=== PATIENT | male | born 1955 | race Caucasian/White ===

== ENCOUNTER → 2016-07-27 | Outpatient (CLI) | payer OTHER | END | disposition home or self-care (01) | LOC: PCVCCLINIC 10:26 | PROVIDERS: ATTEND Internal Medicine | DX: E78.00 Pure hypercholesterolemia, unspecified (principal); G45.9 Transient cerebral ischemic attack, unspecified | CPT/HCPCS: 80061 ==

== ENCOUNTER → 2018-05-28 | Outpatient (CLI) | payer OTHER | END | disposition home or self-care (01) | LOC: PCVCCLINIC 11:50 | PROVIDERS: ATTEND Internal Medicine | DX: I10 Essential (primary) hypertension (principal); E78.5 Hyperlipidemia, unspecified; I63.9 Cerebral infarction, unspecified; Z79.899 Other long term (current) drug therapy | CPT/HCPCS: 93005; G0463 ==

== ENCOUNTER → 2019-01-15 | Outpatient (CLI) | payer OTHER ==
--- NOTE | 2019-01-16 11:55 | PCVCIMAG ---
APPROVED REPORT Study performed: 01/15/2019 10:43:27 EXAM: Comprehensive 2D, Doppler, and color-flow Echocardiogram Patient Location: Echo lab Room #: 2Status: routine BSA: 1.92 HR: 68 bpmBP: 136/64 mmHg Rhythm: NSR Other Information Study Quality: Good Risk Factors: Cardiac Risk Factors: HTN, Dyslipidemia Indications CVA/TIA Hypertension/HDD 2D Dimensions IVSd: 7.35 (7-11mm)LVOT Diam: 23.03 (18-24mm) LVDd: 51.61 mm PWd: 6.81 (7-11mm) LVDs: 24.25 (25-40mm) Left Atrium: 33.47 (27-40mm) LV Single Plane 4CH: 64.39 % LV Single Plane 2CH: 66.75 % Biplane EF: 65.4 % Volumes Left Atrial Volume (Systole) Biplane LA Volume: 35.00 mLLA ESV Index: 18.00 mL/m2 Aortic Valve AoV Peak Gene.: 2.86 m/s AO Peak Gr.: 32.74 mmHgLVOT Max P.98 mmHg AO Mean Gr.: 18.84 mmHgLVOT Mean P.87 mmHg AO V2 Mean: 2.08 m/sLVOT Max V: 1.21 m/s AO V2 VTI: 65.60 cmLVOT Mean V: 0.80 m/s LULÚ (VTI): 1.76 nm6XQOR V1 VTI: 27.79 cm LULÚ Vmax: 1.76 cm2 AI Vmax: 4.21 m/sSV (LVOT): 115.74 mL AI [place]: 2.17 m/s2 AI PHT: 562.08 ms Mitral Valve E/A Ratio: 0.9 MV Decel. Time: 213.67 ms MV E Max Gene.: 0.82 m/s MV A Gene.: 0.88 m/s IVRT: 103.81 ms TDI E/Lateral E': 9.11E/Medial E': 10.25 Medial E' Gene.: 0.08 m/s Lateral E' Gene.: 0.09 m/s Pulmonary Valve PV Peak Gene.: 1.38 m/sPV Peak Gr.: 7.67 mmHg Pulmonary Vein P Vein S: 0.52 m/sP Vein A: 0.31 m/s P Vein D: 0.36 m/sP Vein A Dur.: 107.3 msec P Vein S/D Ratio: 1.44 Tricuspid Valve TR Peak Gene.: 2.59 m/s TR Peak Gr.: 26.86 mmHg TV Vmax: 0.83 m/sPA Pressure: 34.00 mmHg Left Ventricle The left ventricle is normal size. There is normal LV segmental wall motion. There is normal left ventricular wall thickness. Left ventricular systolic function is normal. The left ventricular ejection fraction is within the normal range. LVEF is 65%. The left ventricular diastolic function is normal. Right Ventricle The right ventricle is normal size. The right ventricular systolic function is normal. Atria The left atrium size is normal. The right atrium size is normal. Aortic Valve Aortic valve is possibly bicuspid. Mild aortic valve sclerosis. Mild to moderate aortic regurgitation. Mild aortic stenosis. Highest mean aortic valve gradient is 19_mmHg. Peak aortic valve gradient is 33_mmHg. Calculated LULÚ by the continuity equation is 1.8 cm2. Mitral Valve The mitral valve is normal in structure. There is no mitral valve regurgitation noted. No evidence of mitral valve stenosis. Tricuspid Valve The tricuspid valve is normal in structure. Trace to mild tricuspid regurgitation with a PA pressureof 34 mmHg. Mild pulmonary hypertension. Pulmonic Valve The pulmonary valve is normal in structure. There is no pulmonic valvular regurgitation. Great Vessels The aortic root is normal in size. The ascending aorta is normal in size. IVC is normal in size and collapses >50% with inspiration. Pericardium There is no pericardial effusion. There is no pleural effusion. <Conclusion> The left ventricle is normal size. LVEF is 65%. Aortic valve is possibly bicuspid. Mild aortic valve sclerosis. Mild to moderate aortic regurgitation. Mild aortic stenosis. Highest mean aortic valve gradient is 19_mmHg. Peak aortic valve gradient is 33_mmHg. Calculated LULÚ by the continuity equation is 1.8 cm2. The mitral valve is normal in structure. The tricuspid valve is normal in structure. Trace to mild tricuspid regurgitation with a PA pressureof 34 mmHg. Mild pulmonary hypertension. The pulmonary valve is normal in structure. There is no pericardial effusion.
== END | disposition home or self-care (01) ==
LOC: PCVCIMAG 10:35
PROVIDERS: ATTEND Internal Medicine
DX: Z01.810 Encounter for preprocedural cardiovascular examination (principal); I08.2 Rheumatic disorders of both aortic and tricuspid valves; I63.9 Cerebral infarction, unspecified; I10 Essential (primary) hypertension; E78.5 Hyperlipidemia, unspecified; I27.20 Pulmonary hypertension, unspecified; Z87.891 Personal history of nicotine dependence; Z88.8 Allergy status to other drugs, medicaments and biological substances
CPT/HCPCS: 93306